=== PATIENT | male | born 1950 | race Caucasian/White ===

== ENCOUNTER → 2022-09-02 | Outpatient (CLI) | payer OTHER | END | disposition home or self-care (01) | LOC: SHCH 09:31 | PROVIDERS: ATTEND Internal Medicine Cardiovascular Disease | DX: R06.00 Dyspnea, unspecified (principal) | CPT/HCPCS: 93306 ==

== ENCOUNTER → 2022-09-05 | Outpatient (CLI) | payer OTHER | END | disposition home or self-care (01) | LOC: EDUNIT# 09-04 13:00 → RAH 13:37 | PROVIDERS: ATTEND Internal Medicine Cardiovascular Disease | DX: Z13.6 Encounter for screening for cardiovascular disorders (principal); I51.5 Myocardial degeneration | CPT/HCPCS: 75571 ==

== ENCOUNTER → 2022-10-15 | Outpatient (CLI) | payer OTHER ==
[2022-10-15] MEDS: REGADENOSON 0.4 MG/5 ML PF SYG IVP SCH (12:48)
== END | disposition home or self-care (01) ==
LOC: SHCH 08:04
PROVIDERS: ATTEND Internal Medicine Cardiovascular Disease
DX: I45.10 Unspecified right bundle-branch block (principal); R53.83 Other fatigue; R06.00 Dyspnea, unspecified; R06.02 Shortness of breath; Z68.33 Body mass index [BMI] 33.0-33.9, adult; I25.83 Coronary atherosclerosis due to lipid rich plaque; F17.200 Nicotine dependence, unspecified, uncomplicated
CPT/HCPCS: 78452; 96374; 93017; J2785; A9500 ×2